=== PATIENT | male | born 1960 | race Caucasian/White ===

== ENCOUNTER 2020-08-21 15:48 | Emergency (ER) | payer OTHER, SELFPAY ==
--- NOTE | ~2020-08-21 | XR_ITS ---
EXAMINATION: XR ankle LT min 3V DATE: 08/21/2020 16:14 INDICATION: TECHNIQUE: Anteroposterior, oblique, mortise, and lateral views of the left ankle were obtained. COMPARISON: None. FINDINGS: Subtle sagittally oriented nondisplaced fracture extending across the medial malleolus. No other acut e fractures identified. There are a few heterotopic ossicles near the tip the medial malleolus likely sequela of more chronic deltoid ligament injury. Additional heterotopic ossification along the dista l aspect of the tibiofibular syndesmosis also likely related to chronic syndesmotic injury the settin g of a high ankle sprain. Alignment remains essentially anatomic with a congruent ankle mortise joint spaces are relatively preserved. Moderate-sized plantar calcaneal spur. Small Achilles calcaneal spu r. Mild fusiform thickening of the Achilles tendon with a few punctate calcifications centimeter prox imal to 4 similar above the level of the calcaneal insertion suggesting Achilles tendinosis and possi ble chronic partial tear. IMPRESSION: 1. Nondisplaced medial malleolus fracture. Reviewed, dictated and finalized at location H. Y OPERATOR
[2020-08-21 15:56] VITALS: BP 187/96; PULSE 80; RESP 24; TEMP 36.8; O2SAT 98
--- NOTE | 2020-08-21 15:56 | ED.LOWEXIN ---
HPI - Extremity Injury (Lower) General Chief Complaint: Extremity Injury, Lower Stated Complaint: INJURED L ANKLE Time Seen by Provider: 08/21/20 16:00 Source: patient and RN notes reviewed Limitations: no limitations History of Present Illness HPI Narrative: The patient, who is on several meds -that he has not been compliant with while deer hunting, presents with left ankle pain. Patient states he has a couple hour history of left ankle pain that is medial, moderate, worse with activity better with rest or elevation. Patient states while hunting he twisted and heard a pop and has pain medially. No bleeding, deformity, prior injury Related Data Home Medications Medication Instructions Recorded Confirmed omega-3 fatty acids 1,000 mg 1,000 mg PO DAILY 10/23/19 08/21/20 capsule cholecalciferol (vitamin D3) 25 mcg PO DAILY 08/21/20 08/21/20 [Vitamin D3] Allergies Allergy/AdvReac Type Severity Reaction Status Date / Time aspirin AdvReac Gastrointestinal Verified 08/21/20 15:57 Upset NSAIDS (Non-Steroidal AdvReac Gastrointestinal Verified 08/21/20 15:57 Anti-Inflamma Upset Review of Systems Review of Systems: Narrative: General/Constitutional: No weight loss,fever Eyes: N0: Redness,discharge Ears/Nose/Throat: No: Epistaxis,ear discharge Respiratory: Denies: Hemoptysis Gastrointestinal: No Vomiting, Bleeding-rectal Skin: No Lumps, eruption Neurologic: No Focal Weakness,Sz Hematologic: Denies: Petechiae/Purpura Psychiatric: No: Suicida ideationl All Other Systems: Reviewed and Negative [facility] Past Medical History Medical History (Updated 08/21/20 @ 16:46 by Shane Marion MD) Acute hemorrhoid 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 Arthritis Clavicle fracture Complication of reattached foot and toe of left foot Early cataracts, bilateral Fingers fractured GERD (gastroesophageal reflux disease) Hand fracture, right x2 Hyperlipidemia Hypertension Kidney stones Morbid obesity Sleep apnea Wrist fracture, right Surgical History Surgical History (Updated 08/21/19 @ 17:08 by Miriam Bal) H/O arthroscopic knee surgery Hx of anterior cruciate ligament tear reconstruction Hx of tonsillectomy Family History Family History Father Hypertension Family history of heart disease in male family member before age 55 Mother Hypertension Family history of heart disease in male family member before age 55 Social History Social History (Updated 08/21/19 @ 17:09 by Miriam Bal) Smoking packs per day: 1 Smoking cigarettes per day: 20.0 Years smoked: 7 Smoking pack-years: 7.00 Smoking status: Former smoker Tobacco type: cigarettes Second hand tobacco smoke exposure: Yes Gender identity (if verbalized by the patient): Male Comments At time of signature, agree with nursing past medical, surgical, social and family history. There is no relevant family history pertinent to the presenting complaint Exam Narrative: Exam Narrative: General Appearance: Well appearing, Conjunctiva clear Ears: External ear normal, Auditory canal normal Nose: Normal nose, Nares clear Mouth/Throat: Normal appearing, Normal lips Neck: Supple Respiratory: Airway patent, No respiratory distress MS ankle: Normal strength (mostly intact,mod. limited flexion/extension by pain), Tenderness (medially, with mild decreased ROM), Swelling medially), Other no Achilles tenderness, no fifth MT tenderness) Skin: Warm, Dry, Normal color Neurological: A&O x3, Normal affect Course Vital Signs Vital signs: Vital Signs Temperature 98.3 F 08/21/20 15:56 Pulse Rate 80 08/21/20 15:56 Respiratory Rate 24 H 08/21/20 15:56 Blood Pressure 187/96 H 08/21/20 15:56 Pulse Oximetry 98 08/21/20 15:56 Temperature 98.3 F 08/21/20 15:56 Pulse Rate 80 08/21/20 15:56 Respiratory Rate 24 H 08/21/20 15:5
== END 2020-08-21 16:58 | disposition home or self-care (01) ==
PROVIDERS: Emergency Provider Emergency Medicine; PCP Family Medicine
DX: S82.55XA Nondisplaced fracture of medial malleolus of left tibia, initial encounter for closed fracture (principal); X50.9XXA Other and unspecified overexertion or strenuous movements or postures, initial encounter; X50.0XXA Overexertion from strenuous movement or load, initial encounter; Z87.891 Personal history of nicotine dependence; M19.90 Unspecified osteoarthritis, unspecified site; K21.9 Gastro-esophageal reflux disease without esophagitis; E78.5 Hyperlipidemia, unspecified; I10 Essential (primary) hypertension; G47.30 Sleep apnea, unspecified; E66.01 Morbid (severe) obesity due to excess calories
CPT/HCPCS: 29515; 73610; 99214; G0463

== ENCOUNTER → 2020-10-10 11:45 | Outpatient (CLI) | payer OTHER, SELFPAY ==
--- NOTE | ~2020-10-10 | XR_ITS ---
EXAMINATION: XR chest 2V EXAM DATE: 10/10/2020 12:16 INDICATION: Shortness of breath. TECHNIQUE: Frontal and lateral projections of the chest obtained and reviewed. Comparison is made to prior examination from 12/10/2017. FINDINGS: The lungs are clear. There are no pleural effusions. The cardiomediastinal silhouette is within normal limits. There is no pneumothorax suspected. The bones and soft tissues are unremarkab le. IMPRESSION: No acute cardiopulmonary findings. Reviewed, dictated and finalized at location B. UCTION PATTERN MAKER
== END ==
PROVIDERS: Visit Provider Physician Assistant
DX: R06.02 Shortness of breath (principal)
CPT/HCPCS: 71046

== ENCOUNTER → 2020-11-02 14:46 | Outpatient (CLI) | payer OTHER, SELFPAY ==
--- NOTE | ~2020-11-02 | XR_ITS ---
XR shoulder RT min 2V 11/02/2020 15:04 Indication: Right shoulder pain Procedure: 4 views right shoulder Comparison: No prior studies for comparison. Findings: There are small corticated ossific density superior to the distal aspect of the right clavi vito consistent with avulsion fractures, age indeterminate. Otherwise, there is anatomic alignment. Vi sualized lung parenchyma is unremarkable. There are mild degenerative changes of the shoulder. Impression: 1: Age-indeterminate avulsion fractures distal aspect of the right clavicle, superior margin. No prio r studies are available for direct comparison. Reviewed, dictated and finalized at location A. EMIC INTERN Impression: 1: Age-indeterminate avulsion fractures distal aspect of the right clavicle, solitario perior margin. No prior studies are available for direct comparison.
== END ==
PROVIDERS: PCP Internal Medicine; Visit Provider Physician Assistant
DX: M25.511 Pain in right shoulder (principal); S42.031A Displaced fracture of lateral end of right clavicle, initial encounter for closed fracture
CPT/HCPCS: 73030

== ENCOUNTER 2022-06-08 00:57 | Day surgery (SDC) | payer OTHER, SELFPAY ==
[2022-05-28 13:45] VITALS: BMI 44.8
[2022-06-08 09:00] VITALS: BP 144/84; PULSE 61; RESP 18; TEMP 36.3; O2SAT 94
--- NOTE | 2022-06-08 09:08 | PM.IMHP ---
H&P: HPI History of Present Illness Date/Time: 06/08/22 09:08 Chief Complaint: History of colon polyps Narrative: this is a 61-year-old white male patient presents for colonoscopy patient has a history of multiple colon polyps in the past. He presents today for surveillance colonoscopy. Current weight appetite bowel movements are normal. He denies abdominal pain. Patient has had no bleeding. Review of Systems Review of Systems: Review of systems noncontributory. 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 Arthritis Back contusion CAD (coronary artery disease) Clavicle fracture Complication of reattached foot and toe of left foot Early cataracts, bilateral Fingers fractured GERD (gastroesophageal reflux disease) Hand fracture, right x2 History of colonic polyps Hyperlipidemia Hypertension Inguinal hernia Kidney stones Morbid obesity Sleep apnea Traumatic amputation of finger of left hand 3rd digit Wrist fracture, right Surgical History Surgical History H/O arthroscopic knee surgery History of anterior cruciate ligament surgery Left knee History of total knee arthroplasty (~11/2018) Right knee History of total knee arthroplasty (~10/2019) Left knee Hx of anterior cruciate ligament tear reconstruction Hx of tonsillectomy S/P arthroscopic partial medial meniscectomy Left knee S/P arthroscopic partial medial meniscectomy Right knee Family History Family History Father Hypertension Family history of heart disease in male family member before age 55 Mother Hypertension Family history of heart disease in male family member before age 55 Social History Social History Smoking packs per day: 1 Smoking cigarettes per day: 20.0 Years smoked: 6 Smoking pack-years: 6.00 Smoking status: Former smoker Tobacco type: cigarettes Second hand tobacco smoke exposure: Yes Alcohol intake: former Substance use: never Substance use type: does not use Living arrangements: with family Gender identity (if verbalized by the patient): Male Spiritual care concerns: No Meds Home Medications and Allergies Home Medications Medication Instructions Recorded Confirmed Type hydrochlorothiazide 12.5 mg tablet 12.5 mg PO DAILY #30 tabs 04/22/20 05/28/22 Rx lisinopril 10 mg tablet 10 mg PO DAILY #30 tabs 04/22/20 05/28/22 Rx sodium,potassium,mag sulfates 17.5 See Rx Instructions PO .COMPLEX 05/02/22 05/28/22 Rx gram-3.13 gram-1.6 gram oral soln #354 mL (Suprep Bowel Prep Kit) amlodipine 5 mg tablet 7.5 mg PO HS 05/28/22 05/28/22 History atorvastatin 40 mg tablet 40 mg PO HS 05/28/22 05/28/22 History ergocalciferol (vitamin D2) 1,250 50,000 unit PO WEEKLY 05/28/22 05/28/22 History mcg (50,000 unit) capsule Allergies Allergy/AdvReac Type Severity Reaction Status Date / Time aspirin AdvReac Mild Gastrointestinal Verified 06/08/22 08:59 Upset NSAIDS (Non-Steroidal AdvReac Mild Gastrointestinal Verified 06/08/22 08:59 Anti-Inflamma Upset Vital Signs Vital Signs - 24 hr 06/08/22 09:00 Temperature 97.3 F L Pulse Rate 61 Respiratory Rate 18 Blood Pressure 144/84 H Pulse Oximetry 94 Oxygen Delivery Room Air Exam Narrative: Physical exam reveals patient be alert. Vital signs stable. HEENT exam is unremarkable. Patient is anicteric. Lungs are clear to auscultation and percussion. Heart is without murmur or extra sounds. Abdominal exam bowel sounds are present soft nontender with no hepatosplenomegaly. Digital external rectal exam is normal. Assessment and Plan Assessment and plan (1) History of colon polyps: Code(s): Z86.010 - Personal h
[2022-06-08] MEDS: LACTATED RINGERS 1,000 ML 150 ML IV CONT (09:16)
--- NOTE | 2022-06-08 09:41 | WPDANESEPPF ---
Anes - Initial Pre Proc Eval Procedure: Operation Date: 06/08/22 09:45 Proposed Procedures p Screening Colonoscopy - Quinten Keenan MD Date/Time: 06/08/22 09:41 Surgeon: Quinten Keenan MD Pre Op Diagnosis: hx colon polyps Patient Data Age: 61 Gender: M Height: 1.83 m Weight: 142 kg Last Vital Signs Temp 97.3 F L 06/08/22 09:00 Pulse 61 06/08/22 09:00 Resp 18 06/08/22 09:00 BP 144/84 H 06/08/22 09:00 Pulse Ox 94 06/08/22 09:00 O2 Del Method Room Air 06/08/22 09:00 Allergies Allergy/AdvReac Type Severity Reaction Status Date / Time aspirin AdvReac Mild Gastrointestinal Verified 06/08/22 08:59 Upset NSAIDS (Non-Steroidal AdvReac Mild Gastrointestinal Verified 06/08/22 08:59 Anti-Inflamma Upset Home Medications Medication Instructions Recorded Confirmed Type hydrochlorothiazide 12.5 mg tablet 12.5 mg PO DAILY #30 tabs 04/22/20 06/08/22 Rx lisinopril 10 mg tablet 10 mg PO DAILY #30 tabs 04/22/20 06/08/22 Rx sodium,potassium,mag sulfates 17.5 See Rx Instructions PO .COMPLEX 05/02/22 06/08/22 Rx gram-3.13 gram-1.6 gram oral soln #354 mL (Suprep Bowel Prep Kit) amlodipine 5 mg tablet 7.5 mg PO HS 05/28/22 06/08/22 History atorvastatin 40 mg tablet 40 mg PO HS 05/28/22 06/08/22 History ergocalciferol (vitamin D2) 1,250 50,000 unit PO WEEKLY 05/28/22 06/08/22 History mcg (50,000 unit) capsule Patient hx anesthesia problems: none Family hx anesthesia problems: none Results Review: All pre-operative results and documents have been reviewed as part of the pre-operative evaluation. [facility] Past Medical History Medical History Acute hemorrhoid 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 Arthritis Back contusion CAD (coronary artery disease) Clavicle fracture Complication of reattached foot and toe of left foot Early cataracts, bilateral Fingers fractured GERD (gastroesophageal reflux disease) Hand fracture, right x2 History of colonic polyps Hyperlipidemia Hypertension Inguinal hernia Kidney stones Morbid obesity Sleep apnea Traumatic amputation of finger of left hand 3rd digit Wrist fracture, right Surgical History Surgical History H/O arthroscopic knee surgery History of anterior cruciate ligament surgery Left knee History of total knee arthroplasty (~11/2018) Right knee History of total knee arthroplasty (~10/2019) Left knee Hx of anterior cruciate ligament tear reconstruction Hx of tonsillectomy S/P arthroscopic partial medial meniscectomy Left knee S/P arthroscopic partial medial meniscectomy Right knee Family History Family History Father Hypertension Family history of heart disease in male family member before age 55 Mother Hypertension Family history of heart disease in male family member before age 55 Social History Social History Smoking packs per day: 1 Smoking cigarettes per day: 20.0 Years smoked: 6 Smoking pack-years: 6.00 Smoking status: Former smoker Tobacco type: cigarettes Second hand tobacco smoke exposure: Yes Alcohol intake: former Substance use: never Substance use type: does not use Living arrangements: with family Gender identity (if verbalized by the patient): Male Spiritual care concerns: No Anes - Eval Final PreProcedure Day of Procedure 06/08/22 09:41 Patient weight: morbidly obese Heart: regular rate and rhythm Lungs: clear to auscultation Airway: Mallampati scale class III Neurological: alert and oriented Last oral intake: >/= 8 hours ASA classification: III Emergent: no Anesthetic plan: proceed Anesthesia type and monitoring: general GIVS and standard monitoring Results Review: All pre-operative results and documents hav
[2022-06-08 10:11] VITALS: BP 151/85; PULSE 68; RESP 17; O2SAT 93
[2022-06-08 10:21] VITALS: BP 144/73; PULSE 73; RESP 16; O2SAT 93
[2022-06-08 10:31] VITALS: BP 168/98; PULSE 60; RESP 22; O2SAT 95
== END 2022-06-08 10:40 | disposition home or self-care (01) ==
PROVIDERS: PCP Family Medicine; Visit Provider Internal Medicine Gastroenterology
PROC: 0DJD8ZZ Inspection of Lower Intestinal Tract, Via Natural or Artificial Opening Endoscopic (ICD-10-PCS; CPT 45378; principal; 2022-06-08 09:45)
DX: Z12.11 Encounter for screening for malignant neoplasm of colon (principal); D12.2 Benign neoplasm of ascending colon; D12.4 Benign neoplasm of descending colon; K57.30 Diverticulosis of large intestine without perforation or abscess without bleeding; K64.8 Other hemorrhoids; I25.10 Atherosclerotic heart disease of native coronary artery without angina pectoris; I10 Essential (primary) hypertension; K21.9 Gastro-esophageal reflux disease without esophagitis; E78.5 Hyperlipidemia, unspecified; E66.01 Morbid (severe) obesity due to excess calories; M19.90 Unspecified osteoarthritis, unspecified site; G47.30 Sleep apnea, unspecified; Z87.442 Personal history of urinary calculi; Z96.652 Presence of left artificial knee joint; Z89.412 Acquired absence of left great toe; Z89.022 Acquired absence of left finger(s); Z87.891 Personal history of nicotine dependence
CPT/HCPCS: 45385; 88305; J2704; J7120

== ENCOUNTER 2023-04-10 00:57 | Day surgery (SDC) | payer OTHER, SELFPAY ==
[2023-04-09 14:42] VITALS: BMI 41.4
[2023-04-10] VITALS (10 sets, daily range): BP systolic 134–150; BP diastolic 79–95; PULSE 49–53; RESP 12–16; TEMP 36.3–36.4; O2SAT 93–97; BMI 40.7
[2023-04-10 08:55] LABS: Basophils Absolute Auto 0.1 K/mm3 (0.0-0.1); Basophils Percent Auto 1.2 % (0.2-1.2); Eosinophils Absolute Auto 0.3 K/mm3 (0-0.3); Eosinophils Percent Auto 4.8 % (0-4.4); Hematocrit 46.8 % (42.0-52.0); Hemoglobin 16.4 g/dL (14.0-18.0); Immature Granulocyte Absolute 0.02 K/mm3 (0.00-0.031); Immature Granulocyte Percent A 0.3 % (0-0.5); Lymphocytes Absolute Auto 2.55 K/mm3 (0.9-3.2); Lymphocytes Percent Auto 37.2 % (18.3-44.2); Mean Corpuscular Hemoglobin 29.6 pg (26-34); Mean Corpuscular Volume 84.5 fl (80-100); Mean Platelet Volume 9.8 fl (7.4-10.4); Monocytes Absolute Auto 0.5 K/mm3 (0.1-0.6); Monocytes Percent Auto 6.7 % (2.6-8.5); Neutrophils Absolute Auto 3.4 K/mm3 (1.3-6.7); Neutrophils Percent Auto 49.8 % (45.5-73.1); Platelet Count Result 210 k/mm3 (150-375); Red Blood Count 5.54 M/mm3 (4.6-6.20); Red Cell Distribution Width 13.6 % (11.5-14.5); White Blood Count 6.9 K/mm3 (4.5-10.0)
[2023-04-10 09:05] LABS: Anion Gap 4 mmol/L (8-16); Blood Urea Nitrogen 16 mg/dL (9-20); Calcium 9.3 mg/dL (8.4-10.2); Carbon Dioxide 28 mmol/L (22-30); Chloride 107 mmol/L (98-107); Estimated CRCL calculation 137 ml/min; Estimated Glomerular Filt Rate > 60; Glucose 112 mg/dL (65-110); Potassium 3.8 mmol/L (3.4-5.0); Sodium 139 mmol/L (137-145)
--- NOTE | 2023-04-10 10:32 | WPDHPUPDATE1 ---
History and Physical Update Update Date/Time: 04/10/23 10:32 History and Physical has been reviewed, including an updated exam of the patient. There are NO changes in the patient's condition. Risks, benefits, and alternatives have been discussed and questions answered. Patient agrees to proceed with procedure.
--- NOTE | 2023-04-10 10:32 | WPDMODSED ---
Moderate Sedation Note-Pt Data Patient Data Diagnosis: Chest pain, abnormal coronary CTA Present Complaint: Chest pain, abnormal coronary CTA Procedure to be performed/Plan: Coronary angiography, left heart cath, +/- percutaneous coronary intervention Allergies Allergy/AdvReac Type Severity Reaction Status Date / Time aspirin AdvReac Mild Gastrointestinal Verified 04/10/23 08:47 Upset NSAIDS (Non-Steroidal AdvReac Mild Gastrointestinal Verified 04/10/23 08:47 Anti-Inflamma Upset Home Medications Medication Instructions Recorded Confirmed Type amlodipine 5 mg tablet 7.5 mg PO HS 05/28/22 04/10/23 History ergocalciferol (vitamin D2) 1,250 50,000 unit PO WEEKLY 05/28/22 04/10/23 History mcg (50,000 unit) capsule omega [id number] oil 1,000 mg 2 cap PO HS 02/14/23 04/10/23 History (120 mg-180 mg) capsule (Fish Oil) aspirin 81 mg tablet,delayed 81 mg PO DAILY 03/21/23 04/10/23 History release atorvastatin 40 mg tablet 40 mg PO HS 04/10/23 04/10/23 History lisinopril 10 mg tablet 10 mg PO HS 04/10/23 04/10/23 History Current Medications: Active Medications Sodium Chloride (Normal Saline Iv) 500 mls @ 100 mls/hr IV CONT .Q5H [place]ACK[place] Sedation/Anesthesia: No previous sedation/anesthesia problems (including family history). 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 Arthritis Back contusion CAD (coronary artery disease) Clavicle fracture Complication of reattached foot and toe of left foot Early cataracts, bilateral Fingers fractured GERD (gastroesophageal reflux disease) Hand fracture, right x2 History of colonic polyps Hyperlipidemia Hypertension Inguinal hernia Kidney stones Morbid obesity Sleep apnea Traumatic amputation of finger of left hand 3rd digit Wrist fracture, right Surgical History Surgical History H/O arthroscopic knee surgery History of anterior cruciate ligament surgery Left knee History of total knee arthroplasty (~11/2018) Right knee History of total knee arthroplasty (~10/2019) Left knee Hx of anterior cruciate ligament tear reconstruction Hx of tonsillectomy S/P arthroscopic partial medial meniscectomy Left knee S/P arthroscopic partial medial meniscectomy Right knee Family History Family History Father Hypertension Family history of heart disease in male family member before age 55 Mother Hypertension Family history of heart disease in male family member before age 55 Social History Social History Smoking packs per day: 1 Smoking cigarettes per day: 20.0 Years smoked: 6 Smoking pack-years: 6.00 Smoking status: Former smoker Tobacco type: cigarettes Second hand tobacco smoke exposure: Yes Additional smoking assessment comments: quit in 1987 Alcohol intake: never Substance use: never Substance use type: does not use Lack of Transportation: No Lack of Food: Never True Current Housing: I Have Housing Concerned About Future Housing: No Difficulty Paying Gas/Electric Bills: No Difficulty Paying for Meds: YES Currently Unemployed: No Education: Bachelor's Degree Difficulty w/ Childcare or Family Care: YES Living arrangements: with family Gender identity (if verbalized by the patient): Male Spiritual care concerns: No Mod Sed Physical Exam Physical Exam Pre Procedural Exam: Normal: Lungs, Heart Rate, Heart Rhythm, Neuro Exam, Extremities and Skin and Variation: Appearance (Morbid obesity ) and Abdomen (Central obesity ) Hours since solid foods: 12 Hours since liquid intake: 8 Mallampati Classification: class III Internal Medicine - PN: Obj Da Vital Signs Vital Signs: Vital Signs - 24 hr 04/10/23 08:50
--- NOTE | 2023-04-10 10:34 | WPDCARDPROC ---
Cardiac Cath Procedure Note Date of procedure:: 04/10/23 Performing physician:: CATHETERIZATION LABORATORY REPORT Procedure Date: 04/10/2023 Straight Knife Cutter Machine: Valdo Tsang M.D., [facility]? Referring Physician: Dr. Daniele Gardner ? Anesthesia: Versed and Fentanyl were ordered and given in my presence at 10:06, procedure ended at 10:27. Supervision of nurse monitored moderate sedation with Versed and Fentanyl was provided for 21 minutes. Total of Versed 2mg and Fentanyl 50mcg were administered by the Audit Clerks Supervisor RN Mary Arellano. Pre-op Diagnosis: Coronary artery disease Post-op Diagnosis: 1. The proximal LAD has a 40-50% stenosis. The remainder of the LAD has mild diffuse disease. 2. The first diagonal branch is a medium caliber vessel with a moderate stenosis in its proximal portion followed by a 90% stenosis in its mid portion; remainder of the branch has mild diffuse disease. 3. Left dominant coronary artery system 4. Left ventricular end-diastolic pressure of 12mmHg Procedure(s): Left heart catheterization with coronary angiography Access Site: Right radial artery Brief History and Clinical Indications: Patient is a 62-year-old male with morbid obesity, hypertension, hyperlipidemia who is referred for cardiac catheterization for chest pain and abnormal coronary CTA. All risks, benefits and alternatives to left heart catheterization with or without percutaneous coronary intervention was discussed at length with the patient. Risk of complications including but not limited to bleeding, infection, arrhythmia, stroke, worsening kidney function, blood loss, groin hematoma, limb loss, emergency coronary artery bypass grafting, and even were discussed with the patient and all questions were answered. The patient understood and wished to proceed. Time out called, patient name, date of , medical record number, allergies, procedure performed, identify Straight Knife Cutter Machine, patient and staff member concurred with accurate data, procedure carried on. Findings: LEFT HEART CATHETERIZATION FINDINGS: 1. Left main: Large caliber vessel. The left main coronary artery is widely patent without any significant obstructive disease. 2. Left anterior descending: Large caliber vessel. The proximal LAD has a 40-50% stenosis. The remainder of the LAD has mild diffuse disease. The first diagonal branch is a medium caliber vessel with a moderate stenosis in its proximal portion followed by a 90% stenosis in its mid portion; remainder of the branch has mild diffuse disease. 3. Left circumflex: Large caliber vessel. The left circumflex artery is the dominant artery. The left circumflex artery has mild luminal irregularities without any significant obstructive angiographic disease. There is a large caliber OM-1 vessel with mild diffuse disease without any significant obstructive angiographic disease. 4. Right coronary artery: Medium caliber vessel. The right coronary artery is the non-dominant artery. The RCA has luminal irregularities without any significant obstructive angiographic disease. 5. Left ventricle: A. End-diastolic pressure 12 mmHg. B. LV gram deferred. C. No significant gradient across aortic valve on catheter pullback. Description of Procedure: Informed consent signed and placed in the chart. Patient transferred to laborer laboratory room. Prepped and draped in usual sterile fashion. 2% lidocaine injected subcutaneously in right wrist area. 22-gauge venipuncture catheter used to access the right radial artery with the Seldinger technique. 6-FR slender sheath placed in right radial artery. Nitroglycerine and Verapamil were given intraarterial through the sheath. Versacore wire advanced under fluoroscopy 5F Tig 4 diagnostic catheter engaged Left Main Coronary Artery. 5F Tig 4 diagnostic catheter engaged Right Coronary Artery Multiple orthogonal angiogram obtained and reviewed 5F Tig 4 diagnostic catheter crossed aortic valve to obtain LVEDP,
== END 2023-04-10 13:50 | disposition home or self-care (01) ==
PROVIDERS: PCP Family Medicine; Visit Provider Internal Medicine
PROC: 4A023N7 Measurement of Cardiac Sampling and Pressure, Left Heart, Percutaneous Approach (ICD-10-PCS; CPT 93452; principal; 2023-04-10 10:00)
DX: I25.10 Atherosclerotic heart disease of native coronary artery without angina pectoris (principal); R07.9 Chest pain, unspecified; I10 Essential (primary) hypertension; E78.5 Hyperlipidemia, unspecified; E66.01 Morbid (severe) obesity due to excess calories; Z68.41 Body mass index [BMI] 40.0-44.9, adult; K21.9 Gastro-esophageal reflux disease without esophagitis; G47.30 Sleep apnea, unspecified; Z87.891 Personal history of nicotine dependence; Z79.82 Long term (current) use of aspirin
CPT/HCPCS: 36415; 80048; 85025; 93458; A9270; C1769; C1887; C1894; J1644; J2250; J2305; J3010; J7040

== ENCOUNTER 2024-07-30 13:45 | Outpatient (CLI) | payer OTHER, SELFPAY ==
--- NOTE | ~2024-07-30 | US_ITS ---
EXAMINATION: US soft tissue head and neck DATE: 07/30/2024 14:01 INDICATION: Localized swelling, left head. TECHNIQUE: Multiple grayscale and Doppler ultrasound images of the head and neck were obtained. COMPARISON: Head CT 08/21/2019 FINDINGS: At the left posterior skull, there is chronic prominent normal variant ossification. There is no abnormal soft tissue mass. IMPRESSION: 1. Chronic prominent normal variant ossification at the left posterior skull. Reviewed, dictated and finalized at location B.
== END 2024-07-30 13:46 | disposition home or self-care (01) ==
LOC: MICIMG 13:46
PROVIDERS: PCP Nurse Practitioner Family; Visit Provider Nurse Practitioner Family
DX: R22.0 Localized swelling, mass and lump, head (principal)
CPT/HCPCS: 76536

== ENCOUNTER 2025-04-02 09:54 | Emergency (ER) | payer OTHER, SELFPAY ==
[2025-04-02 10:04] VITALS: BP 142/80; PULSE 66; RESP 18; TEMP 36.5; O2SAT 97
--- NOTE | 2025-04-02 10:40 | ED.GENADULT ---
HPI - General Adult General Chief complaint: Skin/Abscess/Foreign Body Stated complaint: Rash Source: patient Limitations: no limitations History of Present Illness HPI narrative: Patient presents for evaluation of skin lesions to the right lateral chest wall. He states he initially had this sensation that he pulled a muscle in that area 4 days ago. He later developed a burning sensation in the area. Yesterday he noted interruption of vesicles. He has had chickenpox and shingles in the past and this feels similar to the shingles. Related Data Home Medications ?Medication ?Instructions ?Recorded ?Confirmed ?Last Taken ?Type ergocalciferol (vitamin D2) 1,250 50,000 unit PO WEEKLY 05/28/22 10/28/24 04/03/23 History mcg (50,000 unit) capsule aspirin 81 mg tablet,delayed 81 mg PO DAILY 03/21/23 10/28/24 04/09/23 History release omega 8-ddy-xwd-fish oil 1,000 mg 2 cap PO BID 04/12/23 10/28/24 Unknown History (120 mg-180 mg) capsule (Fish Oil) clopidogrel 75 mg tablet 75 mg PO DAILY 10/28/24 10/28/24 Unknown History Allergies Allergy/AdvReac Type Severity Reaction Status Date / Time aspirin AdvReac Mild Gastrointestinal Verified 04/02/25 10:01 Upset NSAIDS (Non-Steroidal AdvReac Mild Gastrointestinal Verified 04/02/25 10:01 Anti-Inflamma Upset Review of Systems Review of Systems: CONSTITUTIONAL: Denies fever, chills, or sweats. EYES: Denies visual changes, redness, or discharge. ENT: Denies rhinorrhea, congestion, sore throat, or otalgia. CARDIOVASCULAR: Denies chest pain, palpitations, or edema. RESPIRATORY: Denies cough or dyspnea. GASTROINTESTINAL: Denies abdominal pain, nausea, vomiting, or diarrhea. GENITOURINARY: Denies dysuria or hematuria. SKIN: Reports skin lesions to the right lateral chest wall MUSCULOSKELETAL: Reports right lateral chest wall pain. Denies back pain or joint pain. NEUROLOGIC: Denies headache, numbness, dizziness, or weakness. PSYCHIATRIC: Denies anxiety or depression. 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 CAD (coronary artery disease) Inguinal hernia Back contusion Clavicle fracture Fingers fractured Wrist fracture, right Hand fracture, right x2 Acute hemorrhoid Complication of reattached foot and toe of left foot Amputation toe left big Amputation finger left 3rd digit Kidney stones GERD (gastroesophageal reflux disease) Sleep apnea Early cataracts, bilateral Morbid obesity Arthritis Hyperlipidemia Hypertension History of colonic polyps Surgical History Surgical History History of anterior cruciate ligament surgery Left knee S/P arthroscopic partial medial meniscectomy Right knee S/P arthroscopic partial medial meniscectomy Left knee History of total knee arthroplasty (~10/2019) Left knee History of total knee arthroplasty (~11/2018) Right knee H/O arthroscopic knee surgery Hx of anterior cruciate ligament tear reconstruction Hx of tonsillectomy Family History Family History Father Family history of heart disease in male family member before age 55 Hypertension Coronary artery disease High cholesterol Mother Hypertension Coronary artery disease High cholesterol Sibling Cerebrovascular accident Social History Social History Smoking packs per day: 1 Smoking cigarettes per day: 20.0 Years smoked: 8 Smoking pack-years: 8.00 Smoking status: Former smoker Tobacco type: cigarettes Second hand tobacco smoke exposure: Yes Additional smoking assessment comments: quit in 1987 Alcohol intake: never Substance use: never Substance use type: does not use Lack of Transportation: No Lack of Food: Never True Current Housing: I Have Housing Concerned About Future Housing: No Difficulty Paying Gas/Electric Bills: No Difficulty Paying for Meds: YES Currently Unemployed: No Education: Bachelor's Degree Difficulty w/ Childcare or Family Care: YES Living arrangements: with family Gender identity (if verbalized by the patient): Male Spiritual care concerns: No Exam Narrative: GENERAL: Well-appearing, well-nourished, and in no acute distress. HEAD: Normocephalic, atraumatic. EYES: PERRLA and EOMI. ENT: Nares clear, no rhinorrhea or epistaxis. Mucous membranes moist. Oropharynx without tonsillar hypertrophy exudate or other lesions. Bilateral TMs pearly zapata nonbulging NECK: Supple. No adenopathy or masses. No carotid bruits or JVD CHEST: Clear to auscultation. No respiratory distress. No wheezes rales or rhonchi HEART: Regular rate and rhythm. No murmur heard. Normal peripheral pulses. ABDOMEN: Soft, nontender, nondistended, normal active bowel sounds. EXTREMITIES: Normal range of motion. No edema. SKIN: there are a cluster of erythematous vesicles to the right lateral chest wall NEURO: No focal deficits. Alert and oriented x3. PSYCH: Normal mood and affect. Course Course Emergency Course: This is a 64-year-old male who presented for evaluation of skin lesions to the right lateral chest wall. Exam is consistent with shingles. Discharge with Valtrex. Follow-up with primary provider. Go to the ER for worsening symptoms. Patient in agreement with plan of care. Level of Care: Express Care Visit Vital Signs Vital signs: Vital Signs Temperature 36.5 C 04/02/25 10:04 Pulse Rate 04/02/25 10:04 Respiratory Rate 18 04/02/25 10:04 Blood Pressure 142/80 H 04/02/25 10:04 Pulse Oximetry 97 04/02/25 10:04 Oxygen Delivery Room Air 04/02/25 10:04 Temperature 36.5 C 04/02/25 10:04 Pulse Rate 04/02/25 10:04 Respiratory Rate 18 04/02/25 10:04 Blood Pressure 142/80 H 04/02/25 10:04 Pulse Oximetry 97 04/02/25 10:04 Oxygen Delivery Room Air 04/02/25 10:04 Medical Decision Making Vital Signs Vital Signs: Vital Signs Temperature 36.5 C 04/02/25 10:04 Pulse Rate 04/02/25 10:04 Respiratory Rate 18 04/02/25 10:04 Blood Pressure 142/80 H 04/02/25 10:04 Pulse Oximetry 97 04/02/25 10:04 Oxygen Delivery Room Air 04/02/25 10:04 Temperature 36.5 C 04/02/25 10:04 Pulse Rate 04/02/25 10:04 Respiratory Rate 18 04/02/25 10:04 Blood Pressure 142/80 H 04/02/25 10:04 Pulse Oximetry 97 04/02/25 10:04 Oxygen Delivery Room Air 04/02/25 10:04 Discharge Plan Discharge Clinical Impression: Herpes zoster Patient Disposition: Home Condition: Stable Instructions: Antibiotic Form, Shingles (ED) Patient Language: Puerto Rican Prescriptions: New valacyclovir [Valtrex] 1 gram tablet 1,000 mg PO TID Qty: 30 0RF No Action aspirin 81 mg tablet,delayed release (DR/EC) 81 mg PO DAILY omega 2-opw-pep-fish oil [Fish Oil] 1,000 mg (120 mg-180 mg) capsule 2 cap PO BID clopidogrel 75 mg tablet 75 mg PO DAILY ergocalciferol (vitamin D2) 1,250 mcg (50,000 unit) capsule 50,000 unit PO WEEKLY Rx Instructions: on Wednesdays amlodipine 10 mg tablet 10 mg PO DAILY Qty: 30 5RF fenofibrate 160 mg tablet See Rx Instructions .ROUTE .COMPLEX Qty: 90 2RF Dose Instruction: TAKE 1 TABLET BY MOUTH DAILY Rx Instructions: TAKE 1 TABLET BY MOUTH DAILY losartan-hydrochlorothiazide 100-25 mg tablet See Rx Instructions .ROUTE .COMPLEX Qty: 90 2RF Dose Instruction: TAKE 1 TABLET BY MOUTH DAILY Rx Instructions: TAKE 1 TABLET BY MOUTH DAILY atorvastatin [Lipitor] 80 mg tablet 80 mg PO DAILY Qty: 90 2RF Follow-up/Referrals: Indra,Marzena Shah MD [Primary Care Provider] - Time of Disposition: 10:30
== END 2025-04-02 10:33 | disposition home or self-care (01) ==
PROVIDERS: Emergency Provider Nurse Practitioner; PCP Family Medicine
DX: B02.9 Zoster without complications (principal); Z87.891 Personal history of nicotine dependence; I25.10 Atherosclerotic heart disease of native coronary artery without angina pectoris; K21.9 Gastro-esophageal reflux disease without esophagitis; E66.01 Morbid (severe) obesity due to excess calories; M19.90 Unspecified osteoarthritis, unspecified site; I10 Essential (primary) hypertension; E78.5 Hyperlipidemia, unspecified; Z96.653 Presence of artificial knee joint, bilateral; Z68.41 Body mass index [BMI] 40.0-44.9, adult
CPT/HCPCS: 99213; G0463

== ENCOUNTER 2025-04-20 16:28 | Emergency (ER) | payer OTHER, SELFPAY ==
[2025-04-20 16:37] VITALS: BP 150/71; PULSE 71; RESP 16; TEMP 36.8; O2SAT 98
--- NOTE | 2025-04-20 17:03 | ED_ITS ---
HPI - Wound/Laceration General Chief Complaint: Wound/Laceration Stated Complaint: Head Injury Time Seen by Provider: 04/20/25 17:03 Source: patient Mode of arrival: ambulatory Limitations: no limitations History of Present Illness HPI narrative: 64-year-old male presented for complaint of laceration to the top the head sustained just prior to arrival. states he struck the top of the head on a piece of metal while working on a boat trailer. He rinsed the site with water in the shower. Endorses some bloody drainage continues. Unsure of last tetanus. Denies headache, dizziness, nausea vomiting, vision changes. Related Data Home Medications ?Medication ?Instructions ?Recorded ?Confirmed ?Last Taken ?Type ergocalciferol (vitamin D2) 1,250 50,000 unit PO WEEKLY 05/28/22 10/28/24 04/03/23 History mcg (50,000 unit) capsule omega 7-tfp-hyi-fish oil 1,000 mg 2 cap PO BID 04/12/23 10/28/24 Unknown History (120 mg-180 mg) capsule (Fish Oil) aspirin 81 mg tablet,delayed mg 04/20/25 Unknown History release Allergies Allergy/AdvReac Type Severity Reaction Status Date / Time No Known Allergies Allergy Verified 04/20/25 17:16 Review of Systems Review of Systems: CONSTITUTIONAL: Denies body aches, fever, chills, or sweats. EYES: Denies visual changes, redness, or discharge. ENT: Denies rhinorrhea, congestion CARDIOVASCULAR: Denies chest pain, palpitations, or edema. RESPIRATORY: Denies cough or dyspnea. GASTROINTESTINAL: Denies abdominal pain, nausea, vomiting, or diarrhea. SKIN: reports scalp lac MUSCULOSKELETAL: Denies back pain, joint pain, or myalgia. NEUROLOGIC: Denies headache, numbness, tingling, or weakness. 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 CAD (coronary artery disease) Inguinal hernia Back contusion Clavicle fracture Fingers fractured Wrist fracture, right Hand fracture, right x2 Acute hemorrhoid Complication of reattached foot and toe of left foot Amputation toe left big Amputation finger left 3rd digit Kidney stones GERD (gastroesophageal reflux disease) Sleep apnea Early cataracts, bilateral Morbid obesity Arthritis Hyperlipidemia Hypertension History of colonic polyps Surgical History Surgical History History of anterior cruciate ligament surgery Left knee S/P arthroscopic partial medial meniscectomy Right knee S/P arthroscopic partial medial meniscectomy Left knee History of total knee arthroplasty (~10/2019) Left knee History of total knee arthroplasty (~11/2018) Right knee H/O arthroscopic knee surgery Hx of anterior cruciate ligament tear reconstruction Hx of tonsillectomy Family History Family History Father Family history of heart disease in male family member before age 55 Hypertension Coronary artery disease High cholesterol Mother Hypertension Coronary artery disease High cholesterol Sibling Cerebrovascular accident Social History Social History Smoking packs per day: 1 Smoking cigarettes per day: 20.0 Years smoked: 8 Smoking pack-years: 8.00 Smoking status: Former smoker Tobacco type: cigarettes Second hand tobacco smoke exposure: Yes Additional smoking assessment comments: quit in 1987 Alcohol intake: never Substance use: never Substance use type: does not use Lack of Transportation: No Lack of Food: Never True Current Housing: I Have Housing Concerned About Future Housing: No Difficulty Paying Gas/Electric Bills: No Difficulty Paying for Meds: YES Currently Unemployed: No Education: Bachelor's Degree Difficulty w/ Childcare or Family Care: YES Living arrangements: with family Gender identity (if verbalized by the patient): Male Spiritual care concerns: No Comments At time of signature, I have reviewed and agree with nursing past medical, surgical, social and family history unless otherwise noted. Please see nursing chart for further information. There is no relevant family history pertinent to the presenting complaint Exam Narrative: GENERAL: Well-appearing HEAD: 3cm linear superficial scalp laceration to the top of the head, not gaping, scant bleeding. Tender. EYES: conjunctivae clear, and EOMI. ENT: Mucous membranes moist. Oropharynx without edema, erythema or lesions. NECK: Supple. No lymphadenopathy CHEST: Clear to auscultation. HEART: Regular rate and rhythm. SKIN: Warm, dry. NEURO: Alert and oriented x3. Course Course Emergency Course: Patient is aware of diagnosis, understands and agrees to treatment plan. Anticipatory guidance given. Patient agrees to follow-up as directed and is aware of reasons to seek care at the emergency department. Portions of this record may have been created with voice recognition software Level of Care: Express Care Visit Vital Signs Vital signs: Vital Signs Temperature 98.3 F 04/20/25 16:37 Pulse Rate 71 04/20/25 16:37 Respiratory Rate 16 04/20/25 16:37 Blood Pressure 150/71 H 04/20/25 16:37 Pulse Oximetry 98 04/20/25 16:37 Oxygen Delivery Room Air 04/20/25 16:37 Temperature 98.3 F 04/20/25 16:37 Pulse Rate 71 04/20/25 16:37 Respiratory Rate 16 04/20/25 16:37 Blood Pressure 150/71 H 04/20/25 16:37 Pulse Oximetry 98 04/20/25 16:37 Oxygen Delivery Room Air 04/20/25 16:37 Reviewed MDM - Wound/Laceration MDM Narrative Medical decision making narrative: Discussed physical exam findings, superficial scalp lac to top of head. site cleansed, tetanus updated today. Advised supportive measures and signs/symptoms to go to the ER. Pt is appropriate for outpt treatment and f/u. Differential Diagnosis Differential diagnosis: Likely laceration, abrasion and avulsion of skin Discharge Plan Discharge Clinical Impression: Laceration of scalp Patient Disposition: Home Condition: Stable Instructions: Antibiotic Form, Head Laceration (ED) Additional Instructions: you may wash as normal with soap and water. Do NOT wash with peroxide or alcohol. You can apply antibiotic ointment. Take tylenol or ibuprofen at home for pain tetanus updated today Follow up with your PCP as needed Go to the ER with any signs of infection such as redness, swelling, increased pain, or drainage. Patient Language: Sri Lankan Prescriptions: No Action aspirin 81 mg tablet,delayed release (DR/EC) omega 2-oes-qjz-fish oil [Fish Oil] 1,000 mg (120 mg-180 mg) capsule 2 cap PO BID ergocalciferol (vitamin D2) 1,250 mcg (50,000 unit) capsule 50,000 unit PO WEEKLY Rx Instructions: on Wednesdays amlodipine 10 mg tablet 10 mg PO DAILY Qty: 30 5RF fenofibrate 160 mg tablet See Rx Instructions .ROUTE .COMPLEX Qty: 90 2RF Dose Instruction: TAKE 1 TABLET BY MOUTH DAILY Rx Instructions: TAKE 1 TABLET BY MOUTH DAILY losartan-hydrochlorothiazide 100-25 mg tablet See Rx Instructions .ROUTE .COMPLEX Qty: 90 2RF Dose Instruction: TAKE 1 TABLET BY MOUTH DAILY Rx Instructions: TAKE 1 TABLET BY MOUTH DAILY atorvastatin [Lipitor] 80 mg tablet 80 mg PO DAILY Qty: 90 2RF Follow-up/Referrals: Cristobal,Melisa Young MANAGER OF PHOTOGRAPHY [Primary Care Provider] - Time of Disposition: 17:08
[2025-04-20] MEDS: TETANUS,DIPHTHERIA,AC PERTUSSIS ADULT (0.5 ML) BOOSTRIX IM (17:13)
== END 2025-04-20 17:20 | disposition home or self-care (01) ==
PROVIDERS: Emergency Provider Nurse Practitioner Family; PCP Nurse Practitioner Family
DX: S01.01XA Laceration without foreign body of scalp, initial encounter (principal); W22.8XXA Striking against or struck by other objects, initial encounter; Z23 Encounter for immunization; Z87.891 Personal history of nicotine dependence; I25.10 Atherosclerotic heart disease of native coronary artery without angina pectoris; K21.9 Gastro-esophageal reflux disease without esophagitis; I10 Essential (primary) hypertension; E78.5 Hyperlipidemia, unspecified; E66.01 Morbid (severe) obesity due to excess calories; Z68.41 Body mass index [BMI] 40.0-44.9, adult; Z96.653 Presence of artificial knee joint, bilateral
CPT/HCPCS: 90471; 90715; 99212; G0463

== ENCOUNTER 2025-09-17 01:36 | Day surgery (SDC) | payer OTHER, SELFPAY ==
[2025-09-03 11:40] VITALS: BMI 38.6
--- OUTSIDE RECORDS SUMMARY | 2025-09-17 01:39 | XMS_ITS | Clinical Summary ---
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 Gender Identity Not on file Sexual Orientation Not on file Plan of Treatment Health Maintenance Due Date Last Done Comments Hepatitis C Virus (HCV) Screening 1961 Cologuard 2006 Colonoscopy 2006 Colorectal Cancer Screening 2006 Immunochemical Fecal Occult Blood 2006 Pneumococcal Immunization (5 0+ years) (1 of 1 - PCV) 2011 Zoster Immunization (1 of 2) 2011 Influenza Immunization (#1) 05/31/202510/2018, 06/16/2017, 06/24/2014 SARS-COV-2 Immunization ( - season) 2025 Respiratory Syncytial Virus (RSV) Immunization (Adult) (1 - 1-dose 75+ series) 2036 DTaP/Tdap/Td Immunization Discontinued 2016, 07/31/2012 TdaP Immunization Completed 06/16/2017, 07/31/2012 Hepatitis B Immunization Aged Out No longer eligible based on patient's age to complete this topic Human Papillomavirus (HPV) Immunization Aged Out No longer eligible based on patient's age to complete this topic Meningococcal Immunization (ACWY) Aged Out No longer eligible based on patient's age to complete this topic Rotavirus Immunization Aged Out No lo nger eligible based on patient's age to complete this topic
--- OUTSIDE RECORDS SUMMARY | 2025-09-17 01:39 | XMS_ITS | Clinical Summary ---
Author Organization [facility] Address [address] [place] [address] Care Team Providers Care Cherry Dipper Name Role Phone No, Physician Primary Care Provider [phone] Allergies No known active allergies Medications fenofibrate (TRIGLIDE) 160 mg tablet Take 1 tablet (160 mg total) by mouth daily 02/11/2024 Active losartan-hydroc hlorothiazide (HYZAAR) 100-25 mg per tablet Take 1 tablet by mouth daily 02/12/2024 Active omega 7-jwt-ipd-fish oil 300-1,000 mg capsule 1 capsule Active amLODIPine (NORVASC) 10 mg tablet Take 1 tablet (10 mg total) by mouth daily 90 tablet 3 04/24/2024 Active clopidogreL (PLAVIX) 75 mg tablet Take 1 tablet (75 mg total) by mouth daily 30 tablet 06/12/2024 Active aspirin 81 mg enteric coated tablet Take 1 tablet (81 mg total) by mouth daily 30 tablet 06/12/2024 Active atorvastatin (LIPITOR) 40 mg tablet Take 2 tablets (80 mg total) by mouth daily 30 tablet 06/12/2024 Active ergocalciferol (VITAMIN D) 50,000 unit capsule Take 1 capsule (50,000 Units total) by mouth once a week Active Active Problems Problem Noted Date Diagnosed Date Nonspecific abnormal finding on cardiac evaluati on 05/29/2024 SOB (shortness of breath) 04/24/2024 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 Complete 6 months dual antiplatelet therapy after which transitioned to aspirin monotherapy. We will recheck lipids today on dual therapy. Blood pressure well-controlled. He will follow up with Dr. Jj esparza. We will see him as needed Assessment & Plan (04/24/2024 10:40 AM CDT): In summary this is a 63-year-old male who presents for evaluation of coronary artery disease. Under review his cardiac catheterization films there is diffuse disease in the mid to apical LAD which is likely best treated medically. There is however a focal high-grade lesion in the midportion of a sizable diagonal branch. I think this can be treated percutaneously with acceptable risk. The patient has stable anginal symptoms at this time. We discussed the options of continuing medical therapy(on amlodipine as an antianginal as well as losartan, aspirin and dual lipid- lowering therapy) versus consider intervention. He was in favor of the latter but was going to further think about the options and get some personal issues sorted out. His is undergoing cancer treatment in addition to some other health problems(elevated PSA) so he was going to get back to us in the next couple of weeks. I did discuss with him today that his disease seems stable and intervention would be predominantly aimed at symptom improvement. Hyperlipidemia 04/24/2024 Overview (04/24/2024): Rechecking lipids, lipoprotein a and CRP Assessment & Plan (10/27/2024 9:40 AM OPTICS MANUFACTURING TECHNICIAN): Rechecking lipids today Assessment & Plan (04/24/2024 10:42 AM CDT): Rechecking lipids, lipoprotein a and CRP as it has been over a year Surgical History Surgery Date Site/Laterality Comments CARDIAC CATHETERIZATION 04/10/2023 KNEE SURGERY Bilateral TONSILLECTOMY AMPUTATION FINGER / THUMB Left third digit AMPUTATION FOOT / TOE Left big toe Medical History Medical History Date Comments Coronary artery disease Hyperlipidemia Hypertension Sleep apnea GERD (gastroesophageal reflux disease) Family History Medical History Relation Name Comments Heart disease Father stents Heart disease Mother late 40's, Byp ass Relation Name Status Comments Father Mother Social History Tobacco Use Types Packs/Day Years Used Date Smoking Tobacco: Never Tobacco Cessation:Counseling Given: Not Answered AUDIT-C Answer Date Recorded Q1: How often do you have a drink containing alc ohol? 2-4 times a month 06/12/2024 Q2: How many drinks containi ng alcohol do you have on a typical day when you are drinking? 3 or 4 06/12/2024 Q3: How often do you have si x or more drinks on one occasion? Less than monthly 06/12/2024 Sex and Gender Information Value Date Recorded Sex Assigned at Not on file Legal Sex Male 1:17 AM OPTICS MANUFACTURING TECHNICIAN Gender Identity Not on file Sexual Orientation Not on file Last Filed Vital Signs Vital Sign Reading Time Taken Comments Blood Pressure 118/74 10/27/2024 9:05 AM OPTICS MANUFACTURING TECHNICIAN Pulse 60 10/27/2024 9:05 AM OPTICS MANUFACTURING TECHNICIAN Temperature 36.8 C (98.2 F) 06/12/2024 6:45 AM CDT Respiratory Rate 28 06/12/2024 2:45 PM CDT Oxygen Saturation 99% 10/27/2024 9:05 AM OPTICS MANUFACTURING TECHNICIAN Inhaled Oxygen Concentration - - Weight 146.1 kg (322 lb) 10/27/2024 9:05 AM OPTICS MANUFACTURING TECHNICIAN Height 182.9 cm (6' 0.01) 06/12/2024 6:45 AM CD T Body Mass Index 43.66 06/12/2024 6:45 AM CDT Plan of Treatment Health Maintenance Due Date Last Done Comments Colon Cancer Screening-Colonoscopy 1961 Depression Screening 1961 Hepatitis C Screening 1961 Prostate Cancer Screening-PSA 1961 Hepatitis B Screening 1979 Regular Well Visit/Exam 18-64 1979 Pneumococcal vaccine <65 (1 of 2 - PCV) 1980 Zoster Vaccine (1 of 2) 2011 Covid-19 Vaccine (4 - 2024-2 6 season) 2025 08/15/2021, 12/24/2020, 12/01/2020 Influenza Vaccine (#1) 2025 , 08/15/2021, 09/27/2020, Additional history exists DTaP/Tdap/Td Vaccine (4 - Td or Tdap) 12/18/2027 12/17/2017, 06/16/2017, 07/31/2012 Medical Devices Implanted Type Area Pharmaceutical Physician Device Identifier Shelf Expiration Date Model / Serial / Lot Medtronic Card Vasc Surgery 2.50 X 15mm [place] Rx Coronary Stent [id number] - [id number] - [id number] Implanted:Qty : 1 on 06/12/2024 by Abdiel Rodriguez MD at [facility] Stent Left: Diagnonal Coronary Artery Medtronic Card Vasc Surgery 11/09/2026 [id number] / [id number] / [id number] Insurance [facility] H[facility]/PPO Address: [address] [place] [address] [facility] H[facility]/PPO Address: [phone] [place] [phone] [facility] H[facility]/PPO Address: [address] [place] [phone] [facility] H[facility]/PPO Address: [address] [place] [phone] Advance Directives For more information, please contact: [phone] * Full Code (Latest Code Status on File) Date Activated Date Inactivated Comments 06/12/2024 10:33 AM 06/12/2024 7:07 PM Care Teams Cherry Dipper Relationship Specialty Start Date End Date No, Physician PCP - General 06/04/24
[2025-09-17 07:43] VITALS: BP 144/68; PULSE 62; RESP 16; TEMP 36.4; O2SAT 95; BMI 39.4
[2025-09-17] MEDS: LACTATED RINGERS 1,000 ML 150 ML IV CONT (07:55)
--- NOTE | 2025-09-17 08:41 | WPDANESEPPF ---
Anes - Initial Pre Proc Eval Procedure: Operation Date: 09/17/25 09:00 Proposed Procedures p Screening Colonoscopy - Teddy Lagunas MD Date/Time: 09/17/25 08:41 Surgeon: Teddy Lagunas MD Pre Op Diagnosis: Personal history of colon polyps, unspecified Patient Data Age: 65 Gender: M Height: 1.83 m Weight: 131.8 kg Last Vital Signs Temp 97.5 F L 09/17/25 07:43 Pulse 62 09/17/25 07:43 Resp 16 09/17/25 07:43 BP 144/68 H 09/17/25 07:43 Pulse Ox 95 09/17/25 07:43 O2 Del Method Room Air 09/17/25 07:43 Allergies Allergy/AdvReac Type Severity Reaction Status Date / Time No Known Allergies Allergy Verified 09/17/25 07:42 Home Medications ?Medication ?Instructions ?Recorded ?Confirmed ?Type ergocalciferol (vitamin D2) 1,250 50,000 unit PO WEEKLY 05/28/22 09/03/25 History mcg (50,000 unit) capsule omega 6-fea-boi-fish oil 1,000 mg 2 cap PO BID 04/12/23 09/17/25 History (120 mg-180 mg) capsule (Fish Oil) amlodipine 10 mg tablet 10 mg PO DAILY #30 tabs 06/12/24 09/17/25 Rx atorvastatin 80 mg tablet (Lipitor) 80 mg PO DAILY #90 tabs 02/08/25 09/17/25 Rx aspirin 81 mg tablet,delayed 81 mg PO DAILY 04/20/25 09/17/25 History release hydralazine 25 mg tablet 25 mg PO BID #60 tabs 05/05/25 09/17/25 Rx fenofibrate 160 mg tablet See Rx Instructions .Route 06/01/25 09/17/25 Rx .COMPLEX #90 tabs losartan 100 See Rx Instructions .Route 06/01/25 09/17/25 Rx mg-hydrochlorothiazide 25 mg tablet .COMPLEX #90 tabs Patient hx anesthesia problems: none Family hx anesthesia problems: none Results Review: All pre-operative results and documents have been reviewed as part of the pre-operative evaluation. 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 CAD (coronary artery disease) Inguinal hernia Back contusion Clavicle fracture Fingers fractured Wrist fracture, right Hand fracture, right x2 Acute hemorrhoid Complication of reattached foot and toe of left foot Amputation toe left big Amputation finger left 3rd digit Kidney stones GERD (gastroesophageal reflux disease) Sleep apnea Early cataracts, bilateral Morbid obesity Arthritis Hyperlipidemia Hypertension History of colonic polyps Surgical History Surgical History History of anterior cruciate ligament surgery Left knee S/P arthroscopic partial medial meniscectomy Right knee S/P arthroscopic partial medial meniscectomy Left knee History of total knee arthroplasty (~10/2019) Left knee History of total knee arthroplasty (~11/2018) Right knee H/O arthroscopic knee surgery Hx of anterior cruciate ligament tear reconstruction Hx of tonsillectomy Family History Family History Father Family history of heart disease in male family member before age 55 Hypertension Coronary artery disease High cholesterol Mother Hypertension Coronary artery disease High cholesterol Sibling Cerebrovascular accident Social History Social History Smoking packs per day: 1 Smoking cigarettes per day: 20.0 Years smoked: 8 Smoking pack-years: 8.00 Smoking status: Former smoker Tobacco type: cigarettes Second hand tobacco smoke exposure: Yes Additional smoking assessment comments: quit in 1987 Alcohol intake: current Alcohol use details: rarely Substance use: never Substance use type: does not use Lack of Transportation: No Lack of Food: Never True Current Housing: I Have Housing Concerned About Future Housing: No Difficulty Paying Gas/Electric Bills: No Difficulty Paying for Meds: YES Currently Unemployed: No Education: Bachelor's Degree Difficulty w/ Childcare or Family Care: YES Living arrangements: with family Gender identity (if verbalized by the patient): Male Spiritual care concerns: No Anes - Eval Final PreProcedure Day of Procedure 09/17/25 08:41 Patient weight: obese Lungs: normal air movement Airway: Mallampati scale class II and special considerations (Missing some in post aspect. ) Neurological: alert and oriented Last oral intake: >/= 8 hours ASA classification: III Emergent: no Anesthetic plan: proceed Anesthesia type and monitoring: general GIVS and standard monitoring Results Review: All pre-operative results and documents have been reviewed as part of the pre-operative evaluation. BMI 39, HTN, hyperlipdemia, s/p PTCA 05/2024, ex smoker quit approx 1989, walked 4 miles several days ago, no cp or sob. Informed Consent: The patient's anesthetic plan and its attendant risks and benefits were discussed with the patient/family/POA. Questions were solicited and answers provided to the satisfaction of the patient/family/POA.
--- NOTE | 2025-09-17 08:43 | PM.IMHP2 ---
H&P: HPI History of Present Illness Date/Time: 09/17/25 08:43 Chief Complaint: History of colon polyps Narrative: The patient has a history of colonic polyps, the last colonoscopy was 3 years ago. 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 CAD (coronary artery disease) Inguinal hernia Back contusion Clavicle fracture Fingers fractured Wrist fracture, right Hand fracture, right x2 Acute hemorrhoid Complication of reattached foot and toe of left foot Amputation toe left big Amputation finger left 3rd digit Kidney stones GERD (gastroesophageal reflux disease) Sleep apnea Early cataracts, bilateral Morbid obesity Arthritis Hyperlipidemia Hypertension History of colonic polyps Surgical History Surgical History History of anterior cruciate ligament surgery Left knee S/P arthroscopic partial medial meniscectomy Right knee S/P arthroscopic partial medial meniscectomy Left knee History of total knee arthroplasty (~10/2019) Left knee History of total knee arthroplasty (~11/2018) Right knee H/O arthroscopic knee surgery Hx of anterior cruciate ligament tear reconstruction Hx of tonsillectomy Family History Family History Father Family history of heart disease in male family member before age 55 Hypertension Coronary artery disease High cholesterol Mother Hypertension Coronary artery disease High cholesterol Sibling Cerebrovascular accident Social History Social History Smoking packs per day: 1 Smoking cigarettes per day: 20.0 Years smoked: 8 Smoking pack-years: 8.00 Smoking status: Former smoker Tobacco type: cigarettes Second hand tobacco smoke exposure: Yes Additional smoking assessment comments: quit in 1987 Alcohol intake: current Alcohol use details: rarely Substance use: never Substance use type: does not use Lack of Transportation: No Lack of Food: Never True Current Housing: I Have Housing Concerned About Future Housing: No Difficulty Paying Gas/Electric Bills: No Difficulty Paying for Meds: YES Currently Unemployed: No Education: Bachelor's Degree Difficulty w/ Childcare or Family Care: YES Living arrangements: with family Gender identity (if verbalized by the patient): Male Spiritual care concerns: No Meds Home Medications and Allergies Home Medications ?Medication ?Instructions ?Recorded ?Confirmed ?Type ergocalciferol (vitamin D2) 1,250 50,000 unit PO WEEKLY 05/28/22 09/03/25 History mcg (50,000 unit) capsule omega 9-fju-qai-fish oil 1,000 mg 2 cap PO BID 04/12/23 09/17/25 History (120 mg-180 mg) capsule (Fish Oil) amlodipine 10 mg tablet 10 mg PO DAILY #30 tabs 06/12/24 09/17/25 Rx atorvastatin 80 mg tablet (Lipitor) 80 mg PO DAILY #90 tabs 02/08/25 09/17/25 Rx aspirin 81 mg tablet,delayed 81 mg PO DAILY 04/20/25 09/17/25 History release hydralazine 25 mg tablet 25 mg PO BID #60 tabs 05/05/25 09/17/25 Rx fenofibrate 160 mg tablet See Rx Instructions .Route 06/01/25 09/17/25 Rx .COMPLEX #90 tabs losartan 100 See Rx Instructions .Route 06/01/25 09/17/25 Rx mg-hydrochlorothiazide 25 mg tablet .COMPLEX #90 tabs Allergies Allergy/AdvReac Type Severity Reaction Status Date / Time No Known Allergies Allergy Verified 09/17/25 07:42 Vital Signs Vital Signs - 24 hr 09/17/25 07:43 Temperature 97.5 F L Pulse Rate 62 Respiratory Rate 16 Blood Pressure 144/68 H Pulse Oximetry 95 Oxygen Delivery Room Air Exam Const: General: cooperative and healthy appearing Resp: Effort & Inspection: normal respiratory effort and able to speak in complete sentences Auscultation: clear to auscultation bilaterally Cardio: Rate: regular rate Rhythm: regular rhythm GI: Inspection: normal to inspection GI Palp: No No hepatosplenomegaly present Auscultation: normal bowel sounds Rectal Exam: deferred Skin: General skin exam: normal color Psych: Appearance: grossly normal Mental Status: mental status grossly normal Assessment and Plan Assessment and plan (1) History of colon polyps: Code(s): Z86.010 - Personal history of colon polyps Status: Acute Assessment and Plan: The patient is deemed a good candidate for the procedure. Consent signed. Will proceed. Prior Studies I have reviewed the following patient records and this information was taken into consideration when formulating the assessment and plan.: previous labs, previous ER visits, previous hospitalizations and previous clinic visits
--- NOTE | 2025-09-17 09:15 | S_PTH ---
PATIENT: Dmitri Swain LOC: [facility]#:[id number] AGE/SX: 65/M ROOM: RE09/17/[address]: Teddy Lagunas MD : 1960 BED: DIS: 09/17/2025 SPEC #: [id number] RECD: 09/17/25 11:39 STATUS: LEISA RESara #: [id number] EDDI: 09/17/25 09:[address]: Teddy Lagunas DEPT: [facility] Surgical RECD BY: Amparo Silva ENTERED: 09/17/25 11:41 SP TYPE: Surgical OTHR DR: Melisa Jain, [employer] Tissues: A - Colon Polypectomy B - Colon Polypectomy C - Colon Polypectomy Procedures: Hematoxylin and Eosin Stain Gross and Microscopic Level 4
[2025-09-17 09:26] VITALS: BP 109/69; PULSE 54; RESP 23; O2SAT 95
[2025-09-17 09:36] VITALS: BP 113/68; PULSE 51; RESP 12; O2SAT 96
[2025-09-17 09:46] VITALS: BP 124/78; PULSE 58; RESP 16; O2SAT 99
== END 2025-09-17 09:58 | disposition home or self-care (01) ==
PROVIDERS: PCP Nurse Practitioner Family; Referring Provider Internal Medicine Gastroenterology; Visit Provider Internal Medicine Gastroenterology
PROC: 0DJD8ZZ Inspection of Lower Intestinal Tract, Via Natural or Artificial Opening Endoscopic (ICD-10-PCS; CPT 45378; principal; 2025-09-17 09:00)
DX: Z12.11 Encounter for screening for malignant neoplasm of colon (principal); D12.2 Benign neoplasm of ascending colon; D12.4 Benign neoplasm of descending colon; K57.30 Diverticulosis of large intestine without perforation or abscess without bleeding; E78.5 Hyperlipidemia, unspecified; I10 Essential (primary) hypertension; I25.10 Atherosclerotic heart disease of native coronary artery without angina pectoris; K21.9 Gastro-esophageal reflux disease without esophagitis; G47.30 Sleep apnea, unspecified; E66.9 Obesity, unspecified; Z68.39 Body mass index [BMI] 39.0-39.9, adult; Z79.82 Long term (current) use of aspirin; Z98.890 Other specified postprocedural states; Z98.61 Coronary angioplasty status; Z87.891 Personal history of nicotine dependence; Z87.442 Personal history of urinary calculi; Z87.19 Personal history of other diseases of the digestive system; Z82.49 Family history of ischemic heart disease and other diseases of the circulatory system
CPT/HCPCS: 45385; 88305; J2003; J2704; J7120